=== PATIENT | female | born 1970 | race Caucasian/White ===

== ENCOUNTER → 2021-04-06 | Outpatient (CLI) | payer OTHER ==
[~2021-04-06] MED LIST: COMPLETE MULTI1 TAB PO; MASON NATURAL2000 IU PO; NORCO 325 MG-51 TAB PO; ZYRTEC 10MG10 MG PO
== END ==
LOC: MC.RAD 07:00
DX: R92.1 Mammographic calcification found on diagnostic imaging of breast (principal); Z98.82 Breast implant status

== ENCOUNTER → 2021-04-21 | Outpatient (CLI) | payer OTHER | LOC: MC.RAD 12:50 | DX: C50.919 Malignant neoplasm of unspecified site of unspecified female breast (principal); Z96.89 Presence of other specified functional implants | CPT/HCPCS: C1769 ==

== ENCOUNTER 2021-04-26 07:44 | Day surgery (SDC) | payer OTHER ==
[~2021-04-26] VITALS: Ht 175.3 cm; Wt 104.4 kg
[2021-04-26 08:38] VITALS: BP 123/76; PULSE 70; TEMP 98.9
[2021-04-26] MEDS ORDERED: ZYRTEC 10MG10 MG PO (08:59)
[2021-04-26] MEDS ORDERED: COMPLETE MULTI1 TAB PO (09:00)
[2021-04-26] MEDS ORDERED: MASON NATURAL2000 IU PO (09:01)
[2021-04-26] MEDS ORDERED: NORCO 325 MG-51 TAB PO (10:22)
[2021-04-26 10:55] VITALS: BP 111/59; PULSE 66; TEMP 98
--- NOTE | 2021-04-26 10:55 | NUR ---
Patient returned via cart to bay [facility]. Drowsy, oriented. Postop vitals started. toast and orange juice provided. Patient reports no pain or nausea.
[2021-04-26 11:10] VITALS: BP 118/60; PULSE 71
--- NOTE | 2021-04-26 11:10 | NUR ---
Patient sitting semifowler. Denies discomfort. Tolerating food and drink well. Vitals stable. Operative site dressing clean, dry.
[2021-04-26 11:25] VITALS: BP 112/49; PULSE 72
--- NOTE | 2021-04-26 11:25 | NUR ---
Patient semi mora in bed. Alert and oriented. Discontinue IV with no complications.
--- NOTE | 2021-04-26 11:25 | NUR ---
Patient semifowler. Alert and oriented. Denies discomfort. Discontinue IV with no complicaitons. Reviewed discharge instructions and eduaction material, patient verbalized understanding. Patient ambulated to bathroom with steady gait, able to void without difficulty. Instructed patient to dress and open door when ready for transport.
--- NOTE | 2021-04-26 11:45 | NUR ---
Patient transfered via wheel chair by outpatient RN to personal vehicle accompanied by Haris ().
== END 2021-04-26 11:45 | disposition home or self-care (01) ==
LOC: SDCO 07:44
DX: D05.12 Intraductal carcinoma in situ of left breast (principal); Z17.0 Estrogen receptor positive status [ER+]; E66.9 Obesity, unspecified; Z68.33 Body mass index [BMI] 33.0-33.9, adult
CPT/HCPCS: A4648; J0690; J1100; J1885; J2250; J2405; J2704; J2795; J3010; J7120